=== PATIENT | female | born 1930 | race Caucasian/White ===

== ENCOUNTER 2016-08-24 20:44 | Inpatient (IN) | payer MEDICARE, OTHER ==
[2016-08-24] MEDS ORDERED: SODIUM CHLORIDE 0.9% 500 ML IV ONE (21:53)
[2016-08-24] MEDS: SODIUM CHLORIDE 0.9% 1,000 ML IV SCH (22:03)
[2016-08-24 22:04] LABS: Appearance,Urine Clear (Clear); Basophils % (A) 0 %; Bilirubin,Urine Negative (Negative); CH 31.4; CHCM 34.6; Eosinophils % (A) 0 %; Glucose,Urine (UA) Negative (Negative); HCT 42.1 % (34.0-46.0); HDW 2.33; HGB 14.1 gm/dL (11.4-16.0); Ketones,Urine Negative (Negative); Leukocyte Esterase,Urine Negative (Negative); Luc # (Auto) 0.05; Luc % (Auto) 1; Lymphocytes # (A) 0.6 k/uL (1.0-4.8); Lymphocytes % (A) 6 %; MCH 30.4 pg (25.0-35.0); MCHC 33.4 g/dL (31.0-37.0); MCV 91.1 fL (80.0-100.0); Mean Platelet Volume 8.9; Monocytes # (A) 0.2 k/uL (0-1.0); Monocytes % (A) 2 %; Neutrophils # (A) 8.7 k/uL (1.3-7.7); Neutrophils % (A) 91 %; Nitrite,Urine Negative (Negative); PH, Urine 6.5 (5.0-8.0); Protein,Urine Trace (Negative); RBC 4.62 m/uL (3.80-5.40); RDW 12.7 % (11.5-15.5); Specific Gravity,Urine 1.014 (1.001-1.035); UA Billing (MACRO vs. MICRO) CHEM; Urobilinogen,Urine <2.0 mg/dL (<2.0); WBC 9.6 k/uL (3.8-10.6); WBC (Perox) 9.83
[2016-08-24 22:13] LABS: Anion Gap 15 mmol/L; Blood Urea Nitrogen 14 mg/dL (7-17); Calcium 9.3 mg/dL (8.4-10.2); Carbon Dioxide 25 mmol/L (22-30); Chloride 98 mmol/L (98-107); Glucose 174 mg/dL (74-99); Magnesium 1.7 mg/dL (1.6-2.3); Non-African American GFR(MDRD) 53 (>60 ml/min/1.73 sqM); Potassium 3.7 mmol/L (3.5-5.1); Sodium 138 mmol/L (137-145)
--- NOTE | 2016-08-24 22:18 | ED ---
Fever HPI - General Chief Complaint: Fever Stated Complaint: NIKOLAI Time Seen by Provider: 08/24/16 21:05 Source: patient Mode of arrival: EMS Limitations: no limitations - History of Present Illness Initial Comments: Patient is an 86-year-old female who presents to ED with a chief complaint of shortness of breath. Patient resides at a adult foster home. According to the patient's daughter, the patient has had increased cough and shortness of breath for the past 24 hours. During this time, the patient has also been suffering from a productive cough. Patient has had a fever with T-max of 102.8 Fahrenheit. The patient has a known history of dementia. Initial SpO2 was 90% when the patient was taken to urgent care earlier today. The patient had a chest x-ray performed that demonstrated evidence of a possible right middle lobe pneumonia. As such, the patient was treated with a dose of clindamycin IV. However, given the patient's age and possible sepsis, the patient was transferred to the ED for further examination. Here in the ED, the patient's SpO2 is 96% on 3 L nasal cannula. Patient's blood pressure is noted to be 130/ 84. Heart rate within normal limits. - Related Data Home Medications Medication Instructions Recorded Confirmed Aspirin 81 mg PO DAILY 09/30/14 08/24/16 Benazepril/Hydrochlorothiazide 1 tab PO DAILY 09/30/14 08/24/16 [Benazepril-Hctz 20-12.5 mg Tab] Memantine [Namenda] 10 mg PO BID 09/30/14 08/24/16 Rivastigmine 9.5MG/24Hr Patch 1 each TRANSDERM Q24HR 09/30/14 08/24/16 [Exelon 9.5MG/24Hr Patch] Rosuvastatin Calcium [Crestor] 10 mg PO DAILY 09/30/14 08/24/16 Sertraline [Zoloft] 25 mg PO DAILY 09/30/14 08/24/16 Benazepril/Hydrochlorothiazide 1 each PO DAILY 08/24/16 08/24/16 [Benazepril-Hctz 20-12.5 mg Tab] Previous Rx's Medication Instructions Recorded Folic Acid 1 mg PO DAILY@1200 #30 tablet 10/03/14 Multivitamins, Thera [Multivitamin] 1 each PO DAILY@1200 tab 10/03/14 Thiamine [Vitamin B-1] 100 mg PO DAILY@1200 #30 tablet 10/03/14 Acetaminophen Tab [Tylenol Tab] 500 mg PO Q6H #1 tablet 10/04/14 Allergies Allergy/AdvReac Type Severity Reaction Status Date / Time Penicillins Allergy Unknown Verified 08/24/16 20:52 Review of Systems ROS Statement: Those systems with pertinent positive or pertinent negative responses have been documented in the HPI. ROS Other: All systems not noted in ROS Statement are negative. Limitations: ROS unobtainable due to patients medical condition (Patient has hx of underlying dementia. HPI gathered from patient's daughter) Constitutional: Reports: fever, chills Respiratory: Reports: cough, dyspnea, wheezes. Denies: hemoptysis, stridor Endocrine: Reports: fatigue Gastrointestinal: Denies: abdominal pain, nausea, vomiting, diarrhea Musculoskeletal: Denies: back pain Skin: Denies: rash, lesions Neurological: Denies: headache, weakness Psychiatric: Denies: anxiety, depression Past Medical History Past Medical History: Dementia, Hyperlipidemia, Hypertension History of Any Multi-Drug Resistant Organisms: ESBL Date of last positivie culture/infection: 05/27/16 MDRO Source:: ESBL URINE E.COLI Past Surgical History: Appendectomy Past Psychological History: No Psychological Hx Reported Smoking Status: Never smoker Past Alcohol Use History: None Reported Past Drug Use History: None Reported - Past Family History Mother Family Medical History: Unable to Obtain General Exam Limitations: no limitations General appearance: alert, in no apparent distress Head exam: Present: atraumatic, normocephalic Eye exam: Present: normal appearance, PERRL Pupils: Present: normal accommodation ENT exam: Present: normal exam, mucous membranes dry Neck exam: Present: normal inspection Respiratory exam: Present: wheezes (bilateral). Absent: normal lung sounds bilaterally, respiratory distress, rales, rhonchi, stridor, chest wall tenderness Cardiovascular Exam: Present: regular rate, normal rhythm GI/Abdominal exam: Present: soft. Absent: distended, tenderness, guarding, rebound Extremities exam: Present: normal inspection Back exam: Present: normal inspection, full ROM Neurological exam: Present: alert, other (AAOx1 (per patient's baseline)) Psychiatric exam: Present: normal affect, normal mood Skin exam: Present: warm, dry, intact Course Vital Signs 08/24/16 08/24/16 08/24/16 20:46 22:42 23:43 Temperature 98.2 F 96.9 F L Pulse Rate 64 62 60 Respiratory 16 18 18 Rate Blood Pressure 99/56 129/58 115/57 O2 Sat by Pulse 94 L 93 L 93 L Oximetry Medical Decision Making - Medical Decision Making Patient is an 86-year-old female who presents to ED with a chief complaint shortness of breath. States has been present over the course of the past 24 hours. Patient also noted to have a fever with T-max of 102.8 Fahrenheit. Patient's cough noted to be somewhat productive of yellowish-green sputum. Patient has no history of COPD. Suffers from underlying dementia but is normally functional at baseline. Patient does not wear oxygen at home but is dependent on 3 L nasal cannula here in the ED. Patient denies any chest pain. Patient initially taken to urgent care facility where a chest x-ray was performed and demonstrate a possible right middle lobe pneumonia. Patient was treated with clindamycin at that location. Check CBC, BNP, mag. Check blood cultures. Check lactic acid. Provide patient with IV fluids here in the ED. Check rapid influenza. Provide patient with dose of Rocephin to cover for possibility of community acquired pneumonia. 11:35 PM Patient noted to be Influenza A positive. Will treat patient with does of Tamiflu 75mg. Place patient in Droplet Precautions. 11:51 PM Patient to be admitted to [facility] for further monitoring and management of her Influenza Pneumonia. - Lab Data Result diagrams: 08/24/16 21:55 08/24/16 21:55 Lab Results 08/24/16 08/24/16 08/24/16 Range/Units 21:55 21:55 21:55 WBC 9.6 (3.8-10.6) k/uL RBC 4.62 (3.80-5.40) m/uL Hgb 14.1 (11.4-16.0) gm/dL Hct 42.1 (34.0-46.0) % MCV 91.1 (80.0-100.0) fL MCH 30.4 (25.0-35.0) pg MCHC 33.4 (31.0-37.0) g/dL RDW 12.7 (11.5-15.5) % Plt Count 165 (150-450) k/uL Neutrophils % 91 % Lymphocytes % 6 % Monocytes % 2 % Eosinophils % 0 % Basophils % 0 % Neutrophils # 8.7 H (1.3-7.7) k/uL Lymphocytes # 0.6 L (1.0-4.8) k/uL Monocytes # 0.2 (0-1.0) k/uL Eosinophils # 0.0 (0-0.7) k/uL Basophils # 0.0 (0-0.2) k/uL Sodium 138 (137-145) mmol/L Potassium 3.7 (3.5-5.1) mmol/L Chloride 98 (98-107) mmol/L Carbon Dioxide 25 (22-30) mmol/L Anion Gap 15 mmol/L BUN 14 (7-17) mg/dL Creatinine 1.00 (0.52-1.04) mg/dL Est GFR (MDRD) Af Amer >60 (>60 ml/min/1.73 sqM) Est GFR (MDRD) Non-Af 53 (>60 ml/min/1.73 sqM) Glucose 174 H (74-99) mg/dL Plasma Lactic Acid Donovan 1.7 (0.7-2.0) mmol/L Calcium 9.3 (8.4-10.2) mg/dL Magnesium 1.7 (1.6-2.3) mg/dL Urine Color Urine Appearance (Clear) Urine pH (5.0-8.0) Ur Specific [place] (1.001-1.035) Urine Protein (Negative) Urine Glucose (UA) (Negative) Urine Ketones (Negative) Urine Blood (Negative) Urine Nitrate (Negative) Urine Bilirubin (Negative) Urine Urobilinogen (<2.0) mg/dL Ur Leukocyte Esterase (Negative) Influenza Type A RNA (Not Detectd) Influenza Type B (PCR) (Not Detectd) 08/24/16 08/24/16 Range/Units 21:55 22:35 WBC (3.8-10.6) k/uL RBC (3.80-5.40) m/uL Hgb (11.4-16.0) gm/dL Hct (34.0-46.0) % MCV (80.0-100.0) fL MCH (25.0-35.0) pg MCHC (31.0-37.0) g/dL RDW (11.5-15.5) % Plt Count (150-450) k/uL Neutrophils % % Lymphocytes % % Monocytes % % Eosinophils % % Basophils % % Neutrophils # (1.3-7.7) k/uL Lymphocytes # (1.0-4.8) k/uL Monocytes # (0-1.0) k/uL Eosinophils # (0-0.7) k/uL Basophils # (0-0.2) k/uL Sodium (137-145) mmol/L Potassium (3.5-5.1) mmol/L Chloride (98-107) mmol/L Carbon Dioxide (22-30) mmol/L Anion Gap mmol/L BUN (7-17) mg/dL Creatinine (0.52-1.04) mg/dL Est GFR (MDRD) Af Amer (>60 ml/min/1.73 sqM) Est GFR (MDRD) Non-Af (>60 ml/min/1.73 sqM) Glucose (74-99) mg/dL Plasma Lactic Acid Donovan (0.7-2.0) mmol/L Calcium (8.4-10.2) mg/dL Magnesium (1.6-2.3) mg/dL Urine Color Yellow Urine Appearance Clear (Clear) Urine pH 6.5 (5.0-8.0) Ur Specific [place] 1.014 (1.001-1.035) Urine Protein Trace H (Negative) Urine Glucose (UA) Negative (Negative) Urine Ketones Negative (Negative) Urine Blood Negative (Negative) Urine Nitrate Negative (Negative) Urine Bilirubin Negative (Negative) Urine Urobilinogen <2.0 (<2.0) mg/dL Ur Leukocyte Esterase Negative (Negative) Influenza Type A RNA Detected H (Not Detectd) Influenza Type B (PCR) Not Detected (Not Detectd) - EKG Data -: EKG Interpreted by Me 08/24/16 22:18 EKG demonstrates NSR. There is evidence of a LBBB. There are no concerning ST-T changes. Disposition Clinical Impression: Influenza A Disposition: ADMITTED IP TO THIS [facility] Condition: Stable Time of Disposition: 23:52 Decision to Admit Reason: Admit from EC Decision Date: 08/24/16 Decision Time: 23:53
[2016-08-24] MEDS ORDERED: OSELTAMIVIR 75 MG CAP PO STA (23:32)
[2016-08-24] MEDS ORDERED: NALOXONE 0.4 MG/ML 1 ML VIAL IV PRN (23:46)
[2016-08-24] MEDS ORDERED: ACETAMINOPHEN TAB 325 MG TAB PO PRN (23:46)
[2016-08-25 02:28] VITALS: BMI 29.9
[2016-08-25 07:32] LABS: Basophils % (A) 0 %; CH 31.1; CHCM 33.7; Eosinophils % (A) 0 %; HDW 2.34; HGB 13.2 gm/dL (11.4-16.0); Luc # (Auto) 0.03; Luc % (Auto) 0; Lymphocytes # (A) 0.7 k/uL (1.0-4.8); Lymphocytes % (A) 7 %; MCH 29.9 pg (25.0-35.0); MCHC 32.2 g/dL (31.0-37.0); MCV 92.8 fL (80.0-100.0); Mean Platelet Volume 8.3; Monocytes # (A) 0.2 k/uL (0-1.0); Monocytes % (A) 2 %; Neutrophils # (A) 9.4 k/uL (1.3-7.7); Neutrophils % (A) 91 %; RBC 4.41 m/uL (3.80-5.40); RDW 12.7 % (11.5-15.5); WBC 10.4 k/uL (3.8-10.6); WBC (Perox) 10.74
[2016-08-25 07:55] LABS: ALT 38 U/L (9-52); AST 29 U/L (14-36); Alkaline Phosphatase 77 U/L (38-126); Anion Gap 16 mmol/L; Blood Urea Nitrogen 16 mg/dL (7-17); Calcium 8.8 mg/dL (8.4-10.2); Carbon Dioxide 23 mmol/L (22-30); Chloride 102 mmol/L (98-107); Glucose 169 mg/dL (74-99); Magnesium 1.8 mg/dL (1.6-2.3); Non-African American GFR(MDRD) >60 (>60 ml/min/1.73 sqM); Potassium 3.9 mmol/L (3.5-5.1); Sodium 141 mmol/L (137-145); Total Bilirubin 0.3 mg/dL (0.2-1.3); Total Protein 5.8 g/dL (6.3-8.2)
[2016-08-25] MEDS: OSELTAMIVIR 75 MG CAP PO SCH ×2 (08:49→21:58)
[2016-08-25] MEDS: SERTRALINE 25 MG TAB PO SCH (17:26)
[2016-08-25] MEDS: RIVASTIGMINE 9.5MG/24HR PATCH TRANSDERM SCH (17:26)
[2016-08-25] MEDS: ASPIRIN 81 MG CHEW PO SCH (17:26)
[2016-08-25] MEDS: ENOXAPARIN 40 MG/0.4 ML SYRINGE SQ SCH (17:27)
[2016-08-25] MEDS: SODIUM CHLORIDE 0.9% 1,000 ML IV SCH ×2 (17:27→19:50)
--- NOTE | 2016-08-25 19:00 | HP ---
DATE OF ADMISSION: 08/24/2016 PRESENTING COMPLAINT: Short of breath, cough. HISTORY OF PRESENTING COMPLAINT: This is an 86-year-old patient of Dr. Barajas, a resident of [facility], not a very good historian. Chronic stable medical conditions include dementia, hypertension, hyperlipidemia, depression, sent in for short of breath, cough, patient congested. Patient herself is not the best of historian, but can answer simple questions. Did tolerate some breakfast. Review of systems cannot really be obtained as patient is a poor historian. PAST MEDICAL HISTORY: Dementia, hyperlipidemia, hypertension, ESBL. PAST SURGICAL HISTORY: Appendectomy. SOCIAL HISTORY: No smoking or alcohol, resident of [facility]. FAMILY HISTORY: Patient could not tell. HOME MEDICATIONS: 1. Preservation Areds 2 softgel 1 capsule p.o. b.i.d. 2. Ubiquinol 100 mg p.o. daily. 3. Thiamine 100 mg p.o. daily at noon. 4. Zoloft 25 mg p.o. daily. 5. Crestor 10 mg p.o. q.h.s. 6. Exelon 9.5 one patch q.24 hours. 7. Naproxen 220 mg p.o. b.i.d. p.r.n. 8. Namenda 10 mg p.o. b.i.d. 9. Folic acid 1 mg p.o. daily. 10. Vitamin D3 two thousand units p.o. daily. 11. Benazepril hydrochlorothiazide 20/12.5 one tablet p.o. daily. 12. Aspirin 81 mg p.o. daily. 13. Vitamin C 1000 mg p.o. q.h.s. 14. Tylenol tablet 500 mg q.6. Allergy to PENICILLIN. On examination, vital signs on presentation: Temperature 98.2, pulse 54, respirations 16, blood pressure 99/56, pulse ox 94% on 2 L, repeat blood pressure 120/58. GENERAL APPEARANCE: Average build, sitting up in bed, not in distress. EYES: Pupils equal. Conjunctivae normal. HEENT: External appearance of nose and ears normal. NECK: JVD not raised. Mass not palpable. RESPIRATORY: Minimal wheezing. CARDIOVASCULAR: First and second sounds normal. No edema. ABDOMEN: Soft, nontender. Liver and spleen not palpable. LYMPHATIC: No lymph node palpable in neck or axillae. PSYCHIATRY: Patient answering some simple questions. NEUROLOGICAL: Pupils equal. No facial asymmetry. Moving all 4 limbs. INVESTIGATIONS: White count 9.6, hemoglobin 14.1, potassium 3.7. Influenza type A RNA detected. EKG left bundle branch block. ASSESSMENT: 1. Influenza A acute respiratory tract infection with possible bronchitis. 2. 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 3. Hyperlipidemia. 4. Hypertension. 5. Depression, not otherwise specified. 6. Right bundle branch block, asymptomatic. PLAN: Home medications are resumed. Patient is put on Tamiflu, some IV fluids.
[2016-08-25] MEDS ORDERED: ATORVASTATIN 20 MG TAB PO SCH (21:00)
[2016-08-25] MEDS: MEMANTINE 10 MG TAB PO SCH (21:58)
[2016-08-26] MEDS: SODIUM CHLORIDE 0.9% 1,000 ML IV SCH ×2 (03:49→18:22)
[2016-08-26] MEDS: RIVASTIGMINE 9.5MG/24HR PATCH TRANSDERM SCH (08:57)
[2016-08-26] MEDS: ENOXAPARIN 40 MG/0.4 ML SYRINGE SQ SCH (08:57)
[2016-08-26] MEDS: ASPIRIN 81 MG CHEW PO SCH (08:57)
[2016-08-26] MEDS: SERTRALINE 25 MG TAB PO SCH (08:57)
[2016-08-26] MEDS: MEMANTINE 10 MG TAB PO SCH (08:59)
[2016-08-26] MEDS: OSELTAMIVIR 75 MG CAP PO SCH (09:00)
[2016-08-26] MEDS ORDERED: HYDROCHLOROTHIAZIDE 12.5 MG CAP PO SCH (09:00)
[2016-08-26] MEDS ORDERED: LISINOPRIL 20 MG TAB PO SCH (09:00)
[2016-08-26 09:37] VITALS: RESP 15
[2016-08-26 15:34] VITALS: BP 146/77; PULSE 78; TEMP 97.6
[2016-08-27] MEDS ORDERED: OSELTAMIVIR 75 MG CAP PO SCH (09:00)
--- NOTE | 2016-08-27 22:10 | DS ---
DATE OF ADMISSION: 08/24/2016 DATE OF DISCHARGE: 08/26/2016 FINAL DIAGNOSES: 1. Acute influenza A infection of the upper respiratory tract with possible bronchitis. 2. Alzheimer dementia, late onset, with no evidence of psychosis. 3. Hyperlipidemia, chronic. 4. Hypertension, chronic. 5. Depression, not otherwise specified. 6. Rectal blood, asymptomatic. HOSPITAL COURSE: This pleasant lady with underlying dementia presented with influenza A, cough, congestion. By the time of discharge, patient has minimal cough, not coughing up anything at all, tolerating a diet, comfortable. On exam, lungs are clear. CARDIOVASCULAR: First and second seconds normal. Patient able to answer simple questions. DISCHARGE MEDICATIONS: 1. Aspirin 81 mg a day. 2. Benazepril/hydrochlorothiazide 25/12.5, 1 tablet p.o. daily. 3. Namenda 10 mg p.o. b.i.d. 4. Exelon 9.5, 1 patch q.24. 5. Crestor 10 mg p.o. q.h.s. 6. Zoloft 25 mg p.o. daily. 7. Folic acid 1 mg at noon. 8. Thiamine 100 mg p.o. daily. 9. Emergen-C 1000 p.o. q.h.s. 10. Vitamin D3, 2000 units p.o. daily. 11. Aleve 220 mg b.i.d. p.r.n. 12. ( ) 100 mg p.o. daily. 13. PreserVision AREDS 1 capsule p.o. b.i.d. 14. Tamiflu 75 mg p.o. b.i.d. 6 capsules. Follow up with Dr. Barajas in 3 days.
== END 2016-08-26 19:59 | disposition home or self-care (01) | DRG 153 ==
LOC: EC 20:44 → 3SUR 23:46
PROVIDERS: ADMIT Hospitalist; ATTEND Hospitalist
DX: J11.1 Influenza due to unidentified influenza virus with other respiratory manifestations (principal); I45.2 Bifascicular block; G30.1 Alzheimer's disease with late onset; I10 Essential (primary) hypertension; F02.80 Dementia in other diseases classified elsewhere, unspecified severity, without behavioral disturbance, psychotic disturbance, mood disturbance, and anxiety; K62.5 Hemorrhage of anus and rectum; F32.9 Major depressive disorder, single episode, unspecified; E78.5 Hyperlipidemia, unspecified; Z88.0 Allergy status to penicillin; Z90.49 Acquired absence of other specified parts of digestive tract; Z79.82 Long term (current) use of aspirin; Z79.1 Long term (current) use of non-steroidal anti-inflammatories (NSAID); Z79.899 Other long term (current) drug therapy; Z16.24 Resistance to multiple antibiotics
CPT/HCPCS: 36415; 80048; 80053; 81003; 83605; 83735; 84100; 85025; 87040; 87502; 93005; 96361; 96374; 99285

== ENCOUNTER → 2016-12-12 | Outpatient (CLI) | payer MEDICARE | END | disposition home or self-care (01) | LOC: LABWHC1 12:47 | PROVIDERS: ATTEND Family Medicine | DX: N39.0 Urinary tract infection, site not specified (principal) | CPT/HCPCS: 87086 ==

== ENCOUNTER 2017-08-10 19:17 | Emergency (ER) | payer MEDICARE ==
[2017-08-10 19:26] VITALS: TEMP 97.3
[2017-08-10] MEDS ORDERED: SODIUM CHLORIDE 0.9% 1,000 ML IV STA (19:59)
--- NOTE | 2017-08-10 20:03 | ED ---
Fall HPI <Lala Gr - Last Filed: 08/10/17 21:43> - General Source: patient, family, RN notes reviewed Mode of arrival: ambulatory - History of Present Illness MD Complaint: fall <AbelLucas - Last Filed: 08/10/17 21:53> - General Chief Complaint: Fall Stated Complaint: Syncope Time Seen by Provider: 08/10/17 19:35 - History of Present Illness Initial Comments: This 87-year-old female who apparently was walking back from dinner when her eyes fluttered and she fell to the ground. She did strike the right side of her forehead. There is a questionable loss of consciousness. She denies any nausea vomiting she has had pain to her head in the right side the [place] neck pain. No chest abdomen or extremity pain. No prior histories of syncope. No palpitations reported. No recent fevers chills nausea vomiting sweats. (Lucas Roman) - Related Data Home Medications Medication Instructions Recorded Confirmed Aspirin 81 mg PO HS 09/30/14 08/10/17 Benazepril/Hydrochlorothiazide 1 tab PO DAILY 09/30/14 08/10/17 [Benazepril-Hctz 20-12.5 mg Tab] Memantine [Namenda] 10 mg PO BID 09/30/14 08/10/17 Rivastigmine 9.5MG/24Hr Patch 1 patch TRANSDERM Q24HR 09/30/14 08/10/17 [Exelon 9.5MG/24Hr Patch] Rosuvastatin Calcium [Crestor] 10 mg PO HS 09/30/14 08/10/17 Sertraline [Zoloft] 25 mg PO DAILY 09/30/14 08/10/17 Cholecalciferol [Vitamin D3] 2,000 unit PO DAILY 08/25/16 08/10/17 Ubiquinol 100 mg PO DAILY 08/25/16 08/10/17 Vit C/E/Zn/Coppr/Lutein/Zeaxan 1 cap PO BID 08/25/16 08/10/17 [Preservision Areds 2 Softgel] Acetaminophen Tab [Tylenol] 500 mg PO Q6H PRN 08/10/17 08/10/17 Cranberry/Vitamin C 4,200 mg PO DAILY 08/10/17 08/10/17 Emergen Z 1 packet PO HS 08/10/17 08/10/17 Folic Acid 1 mg PO DAILY 08/10/17 08/10/17 Methenamine Hippurate 1 gm PO BID 08/10/17 08/10/17 Thiamine [Vitamin B-1] 100 mg PO DAILY 08/10/17 08/10/17 guaiFENesin SYRUP 100MG/5ML 200 mg PO TID PRN 08/10/17 08/10/17 [Robitussin] Allergies Allergy/AdvReac Type Severity Reaction Status Date / Time Penicillins Allergy Unknown Verified 08/10/17 20:00 Review of Systems ROS Other: All systems not noted in ROS Statement are negative. <Lala Gr - Last Filed: 08/10/17 21:43> ROS Other: All systems not noted in ROS Statement are negative. <Lucas Roman - Last Filed: 08/10/17 21:53> ROS Statement: Those systems with pertinent positive or pertinent negative responses have been documented in the HPI. Past Medical History Past Medical History: Dementia, Hyperlipidemia, Hypertension History of Any Multi-Drug Resistant Organisms: ESBL Date of last positivie culture/infection: 05/27/16 MDRO Source:: ESBL URINE E.COLI Past Surgical History: Appendectomy Past Anesthesia/Blood Transfusion Reactions: No Reported Reaction Past Psychological History: No Psychological Hx Reported Smoking Status: Never smoker Past Alcohol Use History: None Reported Past Drug Use History: None Reported - Past Family History Mother Family Medical History: Unable to Obtain <Lucas Roman - Last Filed: 08/10/17 21:53> General Exam <Lala Gr - Last Filed: 08/10/17 21:43> Limitations: no limitations General appearance: alert Head exam: Present: normocephalic, other (2.5 cm laceration right lateral forehead no step-off or crepitation no active bleeding currently.) Eye exam: Present: normal appearance, PERRL, EOMI. Absent: scleral icterus, conjunctival injection, periorbital swelling ENT exam: Present: normal exam, mucous membranes moist Neck exam: Present: normal inspection. Absent: tenderness, meningismus, lymphadenopathy Respiratory exam: Present: normal lung sounds bilaterally. Absent: respiratory distress, wheezes, rales, rhonchi, stridor Cardiovascular Exam: Present: normal rhythm, bradycardia GI/Abdominal exam: Present: soft, normal bowel sounds. Absent: distended, tenderness, guarding, rebound, rigid Extremities exam: Present: normal inspection, full ROM, normal capillary refill. Absent: tenderness, pedal edema, joint swelling, calf tenderness Back exam: Present: normal inspection Neurological exam: Present: alert, oriented X3, CN II-XII intact. Absent: motor sensory deficit Psychiatric exam: Present: normal affect, normal mood Skin exam: Present: warm, dry, normal color. Absent: intact <Lucas Roman - Last Filed: 08/10/17 21:53> - General Exam Comments Initial Comments: Is a well-developed well-nourished awake alert oriented 3 female she has a [place] Coma Scale of 15 (Lucas Roman) Course <Lala Gr - Last Filed: 08/10/17 21:43> <Lucas Roman - Last Filed: 08/10/17 21:53> Vital Signs 08/10/17 08/10/17 08/10/17 19:18 21:20 21:35 Temperature 97.3 F L Pulse Rate 55 L 58 L 54 L Respiratory 16 18 18 Rate Blood Pressure 177/73 151/70 102/70 O2 Sat by Pulse 98 98 100 Oximetry - Reevaluation(s) Reevaluation #1: 08/10/17 21:49 Reevaluation patient return from CAT scan shows no acute changes. The laceration was repaired by my physician phlebotomy lab assistant Lala. (Lucas Roman) Reevaluation #2: 08/10/17 21:52 Reevaluation of the wound after repair reveals good approximation of the wound edges. (Lucas Roman) Procedures <Lala Gr - Last Filed: 08/10/17 21:43> <Lucas Roman - Last Filed: 08/10/17 21:53> - Procedures Initial comment: The skin was anesthetized with 1% lidocaine. The laceration was then cleansed with Betadine and irrigated with normal saline. The wound was inspected, and there was no evidence of injury to deep structures. No foreign body was noted in the wound. A total of 4 skin sutures were placed utilizing 6-0 nylon to a 2.5 cm laceration to the right forehead (Lala Gr) Medical Decision Making - Lab Data Result diagrams: 08/10/17 20:26 08/10/17 20:26 <Lala rG - Last Filed: 08/10/17 21:43> - Lab Data Result diagrams: 08/10/17 20:26 08/10/17 20:26 - EKG Data -: EKG Interpreted by Me EKG shows normal: sinus rhythm (Sinus bradycardia rate of 55. We'll 172 QRS duration 142 daily since QTC of 478/457 evidence of left exodeviation left bundle-branch block.) - Radiology Data Radiology results: report reviewed (I did review the imaging and reports it did discuss the case with Dr. Land from radiology patient does demonstrate evidence a right frontal subarachnoid bleed with a subdural component no mass effect.), image reviewed <Lucas Roman - Last Filed: 08/10/17 21:53> - Medical Decision Making I did discuss the findings with the patient and with her caregiver. Patient does demonstrate a subarachnoid and evidence of a small subdural bleed. Patient will be transferred to [facility]. I did discuss case with Dr. Coronado who was accepted patient is an ER to ER transfer. (Lucas Roman) - Lab Data Lab Results 08/10/17 08/10/17 08/10/17 Range/Units 20:26 20:26 20:26 WBC 11.1 H (3.8-10.6) k/uL RBC 4.60 (3.80-5.40) m/uL Hgb 13.8 (11.4-16.0) gm/dL Hct 43.2 (34.0-46.0) % MCV 93.9 (80.0-100.0) fL MCH 29.9 (25.0-35.0) pg MCHC 31.9 (31.0-37.0) g/dL RDW 14.3 (11.5-15.5) % Plt Count 207 (150-450) k/uL Neutrophils % 73 % Lymphocytes % 20 % Monocytes % 4 % Eosinophils % 1 % Basophils % 1 % Neutrophils # 8.1 H (1.3-7.7) k/uL Lymphocytes # 2.2 (1.0-4.8) k/uL Monocytes # 0.5 (0-1.0) k/uL Eosinophils # 0.1 (0-0.7) k/uL Basophils # 0.1 (0-0.2) k/uL PT (9.0-12.0) sec INR (<1.2) APTT (22.0-30.0) sec Sodium 139 (137-145) mmol/L Potassium 4.8 (3.5-5.1) mmol/L Chloride 103 (98-107) mmol/L Carbon Dioxide 24 (22-30) mmol/L Anion Gap 12 mmol/L BUN 11 (7-17) mg/dL Creatinine 0.70 (0.52-1.04) mg/dL Est GFR (MDRD) Af Amer >60 (>60 ml/min/1.73 sqM) Est GFR (MDRD) Non-Af >60 (>60 ml/min/1.73 sqM) Glucose 108 H (74-99) mg/dL Calcium 10.0 (8.4-10.2) mg/dL Magnesium 1.8 (1.6-2.3) mg/dL Total Bilirubin 1.3 (0.2-1.3) mg/dL AST 39 H (14-36) U/L ALT 13 (9-52) U/L Alkaline Phosphatase 83 (38-126) U/L Total Creatine Kinase 55 (30-135) U/L CK-MB (CK-2) 2.1 (0.0-2.4) ng/mL CK-MB (CK-2) Rel Index 3.8 Troponin I 0.019 (0.000-0.034) ng/mL Total Protein 6.8 (6.3-8.2) g/dL Albumin 4.0 (3.5-5.0) g/dL Urine Color Urine Appearance (Clear) Urine pH (5.0-8.0) Ur Specific [place] (1.001-1.035) Urine Protein (Negative) Urine Glucose (UA) (Negative) Urine Ketones (Negative) Urine Blood (Negative) Urine Nitrite (Negative) Urine Bilirubin (Negative) Urine Urobilinogen (<2.0) mg/dL Ur Leukocyte Esterase (Negative) Urine RBC (0-5) /hpf Urine WBC (0-5) /hpf Ur Squamous Epith Cells (0-4) /hpf 08/10/17 08/10/17 Range/Units 20:26 21:31 WBC (3.8-10.6) k/uL RBC (3.80-5.40) m/uL Hgb (11.4-16.0) gm/dL Hct (34.0-46.0) % MCV (80.0-100.0) fL MCH (25.0-35.0) pg MCHC (31.0-37.0) g/dL RDW (11.5-15.5) % Plt Count (150-450) k/uL Neutrophils % % Lymphocytes % % Monocytes % % Eosinophils % % Basophils % % Neutrophils # (1.3-7.7) k/uL Lymphocytes # (1.0-4.8) k/uL Monocytes # (0-1.0) k/uL Eosinophils # (0-0.7) k/uL Basophils # (0-0.2) k/uL PT 11.0 (9.0-12.0) sec INR 1.1 (<1.2) APTT 24.9 (22.0-30.0) sec Sodium (137-145) mmol/L Potassium (3.5-5.1) mmol/L Chloride (98-107) mmol/L Carbon Dioxide (22-30) mmol/L Anion Gap mmol/L BUN (7-17) mg/dL Creatinine (0.52-1.04) mg/dL Est GFR (MDRD) Af Amer (>60 ml/min/1.73 sqM) Est GFR (MDRD) Non-Af (>60 ml/min/1.73 sqM) Glucose (74-99) mg/dL Calcium (8.4-10.2) mg/dL Magnesium (1.6-2.3) mg/dL Total Bilirubin (0.2-1.3) mg/dL AST (14-36) U/L ALT (9-52) U/L Alkaline Phosphatase (38-126) U/L Total Creatine Kinase (30-135) U/L CK-MB (CK-2) (0.0-2.4) ng/mL CK-MB (CK-2) Rel Index Troponin I (0.000-0.034) ng/mL Total Protein (6.3-8.2) g/dL Albumin (3.5-5.0) g/dL Urine Color Light Yellow Urine Appearance Clear (Clear) Urine pH 6.5 (5.0-8.0) Ur Specific [place] 1.004 (1.001-1.035) Urine Protein Negative (Negative) Urine Glucose (UA) Negative (Negative) Urine Ketones Negative (Negative) Urine Blood Negative (Negative) Urine Nitrite Negative (Negative) Urine Bilirubin Negative (Negative) Urine Urobilinogen <2.0 (<2.0) mg/dL Ur Leukocyte Esterase Moderate H (Negative) Urine RBC 1 (0-5) /hpf Urine WBC 6 H (0-5) /hpf Ur Squamous Epith Cells 1 (0-4) /hpf Critical Care Time <Lala Gr - Last Filed: 08/10/17 21:43> Critical Care Time: Yes <Lucas Roman - Last Filed: 08/10/17 21:53> Critical Care Time: 31 minutes of critical care time which includes initial presentation with history physical labs x-rays several reevaluation of the patient response to therapy discussed with patient and caregiver. Discussion with the receiving facility documentation of the above. (Lucas Roman) Disposition <Lala Gr - Last Filed: 08/10/17 21:43> - Out of Hospital Transfer - Req. Specs Out of Hospital Transfer - Requested Specifics: Other Emergency Center <Lucas Roman - Last Filed: 08/10/17 21:53> Clinical Impression: Subarachnoid hemorrhage, Frontal lobe contusion, Forehead laceration, Fall Disposition: OTHER INSTITUTION NOT DEFINED Condition: Stable Referrals: Navid Barajas DO [Primary Care Provider] - 1-2 days
[2017-08-10 20:44] LABS: Basophils # (A) 0.1 k/uL (0-0.2); Basophils % (A) 1 %; Eosinophils # (A) 0.1 k/uL (0-0.7); Eosinophils % (A) 1 %; HCT 43.2 % (34.0-46.0); HGB 13.8 gm/dL (11.4-16.0); Lymphocytes # (A) 2.2 k/uL (1.0-4.8); Lymphocytes % (A) 20 %; MCH 29.9 pg (25.0-35.0); MCHC 31.9 g/dL (31.0-37.0); MCV 93.9 fL (80.0-100.0); Mean Platelet Volume 8.3; Monocytes # (A) 0.5 k/uL (0-1.0); Monocytes % (A) 4 %; Neutrophils # (A) 8.1 k/uL (1.3-7.7); Neutrophils % (A) 73 %; Platelet Count 207 k/uL (150-450); RDW 14.3 % (11.5-15.5); WBC 11.1 k/uL (3.8-10.6)
[2017-08-10 21:02] LABS: ALT 13 U/L (9-52); AST 39 U/L (14-36); Alkaline Phosphatase 83 U/L (38-126); Anion Gap 12 mmol/L; Blood Urea Nitrogen 11 mg/dL (7-17); Carbon Dioxide 24 mmol/L (22-30); Chloride 103 mmol/L (98-107); Glucose 108 mg/dL (74-99); Magnesium 1.8 mg/dL (1.6-2.3); Sodium 139 mmol/L (137-145); Total Bilirubin 1.3 mg/dL (0.2-1.3); Total Protein 6.8 g/dL (6.3-8.2)
[2017-08-10 21:03] LABS: Potassium 4.8 mmol/L (3.5-5.1)
[2017-08-10 21:04] LABS: Partial Thromboplastin Time 24.9 sec (22.0-30.0)
[2017-08-10 21:05] LABS: INR 1.1 (<1.2)
--- NOTE | 2017-08-10 21:17 | CT ---
EXAMINATION TYPE: CT brain cspine wo con DATE OF EXAM: 08/10/2017 COMPARISON: CT brain and cervical spine September 30, 2014 HISTORY: Patient poor historian. Syncopal fall. CT DLP: 923.6 mGycm. Automated Exposure Control for Dose Reduction was Utilized. TECHNIQUE: CT scan of the head and cervical spine are performed without contrast. FINDINGS: There is new small extra-axial hyperdensity right frontal region measuring up to 3 mm in thickness. Additional acute hyperdense area fills sulcus sagittal image 15. This is confirmed on stephen nal and sagittal images. No midline shift is seen. There is ventricular and sulcal prominence consist ent with diffuse cerebral atrophy. There is low attenuation in the periventricular white matter. The visualized calvarium is intact. The visualized paranasal sinuses show 7 mm mucous retention cyst or polyp in posterior left ethmoid sinus. Vascular calcification distal internal carotid arteries is pre sent. Sinuses and orbits are incompletely imaged. Cervical spine is visualized in its entirety from C1 through upper thoracic levels and demonstrates s traightening alignment without evidence of acute fracture or dislocation. Prevertebral soft tissue a ppears within normal limits. The C1-C2 articulation is within normal limits on the coronal images. Osseous structures are demineralized. Vertebral body heights are maintained. There is moderate to adv anced multilevel disc space narrowing. There is prominent spurring anteriorly C7-T1 level redemonstra carlos. No large posterior disc herniations are seen on sagittal images. Review of axial images shows de gradation related to patient motion. There are multilevel uncovertebral facet degenerative changes bi laterally contributing to multilevel neural foraminal narrowing most prominent at C3-C4 through C6-C7 levels. Thyroid gland is normal in size. There is moderate biapical pleural/parenchymal scarring. IMPRESSION: 1. Motion artifact degradation is present. There is no acute fracture or dislocation evident in the c ervical spine. Demineralization and multilevel moderate to advanced degenerative changes are present. 2. There is new small amount of right frontal extra-axial hemorrhage with definite subarachnoid compo nent and possible subdural component. No midline shift is seen. There is background moderate diffuse cerebral atrophy and moderate to advanced chronic small vessel ischemic change redemonstrated. Critical results of acute intraparenchymal hemorrhage communicated to ordering ER physician via telep helen at time of dictation.
--- NOTE | 2017-08-10 21:18 | XR ---
EXAMINATION TYPE: XR chest 2V DATE OF EXAM: 08/10/2017 COMPARISON: Chest x-ray October 01, 2014 HISTORY: Syncope and weakness. TECHNIQUE: Frontal and lateral views of the chest are obtained. FINDINGS: There is chronic parenchymal change without suspicious focal air space opacity, pleural ef fusion, or pneumothorax seen. The cardiac silhouette size is upper limits of normal with atheroscler otic aorta. The osseous structures are demineralized. Underlying scoliosis is present. IMPRESSION: No acute pulmonary process. No significant change from prior.
[2017-08-10 21:21] LABS: Creatine Kinase MB 2.1 ng/mL (0.0-2.4); Troponin I 0.019 ng/mL (0.000-0.034)
[2017-08-10 21:39] VITALS: RESP 18
[2017-08-10 21:41] LABS: Appearance,Urine Clear (Clear); Bilirubin,Urine Negative (Negative); Blood,Urine Negative (Negative); Color,Urine Light Yellow; Glucose,Urine (UA) Negative (Negative); Ketones,Urine Negative (Negative); Leukocyte Esterase,Urine Moderate (Negative); Nitrite,Urine Negative (Negative); PH, Urine 6.5 (5.0-8.0); Protein,Urine Negative (Negative); RBC,Urine 1 /hpf (0-5); Specific Gravity,Urine 1.004 (1.001-1.035); Squamous Epithelial Cell,Urine 1 /hpf (0-4); Urobilinogen,Urine <2.0 mg/dL (<2.0); WBC,Urine 6 /hpf (0-5)
[2017-08-10 22:08] VITALS: BP 139/68; PULSE 55
== END 2017-08-10 22:48 | disposition other institution (70) ==
LOC: EC 19:17
DX: S06.6X0A Traumatic subarachnoid hemorrhage without loss of consciousness, initial encounter (principal); S01.81XA Laceration without foreign body of other part of head, initial encounter; R40.2412 Glasgow coma scale score 13-15, at arrival to emergency department; F03.90 Unspecified dementia, unspecified severity, without behavioral disturbance, psychotic disturbance, mood disturbance, and anxiety; E78.5 Hyperlipidemia, unspecified; I10 Essential (primary) hypertension; Z79.82 Long term (current) use of aspirin; Z79.899 Other long term (current) drug therapy; Z88.0 Allergy status to penicillin; W01.10XA Fall on same level from slipping, tripping and stumbling with subsequent striking against unspecified object, initial encounter; Y93.01 Activity, walking, marching and hiking
CPT/HCPCS: 12011; 36415; 70450; 71046; 72125; 80053; 81001; 82550; 82553; 83735; 84484; 85025; 85610; 85730; 93005; 96360; 99285

== ENCOUNTER 2018-01-18 17:52 | Emergency (ER) | payer MEDICARE ==
[2018-01-18 17:58] VITALS: TEMP 99.9
[2018-01-18] MEDS ORDERED: SODIUM CHLORIDE 0.9% 1,000 ML IV STA (18:01)
[2018-01-18] MEDS ORDERED: ACETAMINOPHEN TAB 325 MG TAB PO STA (18:11)
--- NOTE | 2018-01-18 18:14 | ED ---
Fever HPI - General Chief Complaint: Fever Stated Complaint: FEVER, COUGH, POSS UTI Time Seen by Provider: 01/18/18 17:59 Source: patient, family Mode of arrival: wheelchair Limitations: altered mental status - History of Present Illness Initial Comments: This is an 87-year-old female presents emergency Department with daughter from [facility] with complaints of fever. Patient reportedly developed a fever in the last 24 hours daughter is concerned about possible urinary tract infection. They have had 4 recent residence in the assisted-living with URI and UTI. Patient has had a cough which is minimally productive. She's had no recent Tylenol or Motrin even. Patient reports no nasal congestion or ear pain no headache no dizziness. Denies any chest pain or shortness of breath. Mostly history is given by daughter as patient has a history of dementia - Related Data Home Medications Medication Instructions Recorded Confirmed Aspirin 81 mg PO HS 09/30/14 01/18/18 Memantine [Namenda] 10 mg PO BID 09/30/14 01/18/18 Rivastigmine 9.5MG/24Hr Patch 1 patch TRANSDERM Q24HR 09/30/14 01/18/18 [Exelon 9.5MG/24Hr Patch] Sertraline [Zoloft] 25 mg PO DAILY 09/30/14 01/18/18 Cholecalciferol [Vitamin D3] 2,000 unit PO DAILY 08/25/16 01/18/18 Ubiquinol 100 mg PO DAILY 08/25/16 01/18/18 Vit C/E/Zn/Coppr/Lutein/Zeaxan 1 cap PO BID 08/25/16 01/18/18 [Preservision Areds 2 Softgel] Acetaminophen Tab [Tylenol] 1,000 mg PO Q6H PRN 08/10/17 01/18/18 Emergen Z 1 packet PO HS 08/10/17 01/18/18 Folic Acid 1 mg PO DAILY 08/10/17 01/18/18 Methenamine Hippurate 1 gm PO BID 08/10/17 01/18/18 Thiamine [Vitamin B-1] 100 mg PO DAILY 08/10/17 01/18/18 Magnesium Hydroxide [Milk of 2,400 mg PO DAILY PRN 01/18/18 01/18/18 Magnesia Concentrate] Previous Rx's Medication Instructions Recorded Azithromycin [Zithromax] 0 ml PO DIRECTED #38 ml 01/18/18 Allergies Allergy/AdvReac Type Severity Reaction Status Date / Time Penicillins Allergy Unknown Verified 01/18/18 18:20 Review of Systems ROS Statement: Those systems with pertinent positive or pertinent negative responses have been documented in the HPI. ROS Other: All systems not noted in ROS Statement are negative. Past Medical History Past Medical History: Dementia, Hyperlipidemia, Hypertension History of Any Multi-Drug Resistant Organisms: ESBL Date of last positivie culture/infection: 05/27/16 MDRO Source:: ESBL URINE E.COLI Past Surgical History: Appendectomy Past Anesthesia/Blood Transfusion Reactions: No Reported Reaction Past Psychological History: No Psychological Hx Reported Smoking Status: Never smoker Past Alcohol Use History: None Reported Past Drug Use History: None Reported - Past Family History Mother Family Medical History: Unable to Obtain General Exam Limitations: altered mental status (Dementia) General appearance: alert, in no apparent distress Head exam: Present: atraumatic, normocephalic, normal inspection Eye exam: Present: normal appearance, PERRL, EOMI. Absent: scleral icterus, conjunctival injection, periorbital swelling ENT exam: Present: normal exam, normal oropharynx, mucous membranes moist Neck exam: Present: normal inspection. Absent: tenderness, meningismus, lymphadenopathy Respiratory exam: Present: normal lung sounds bilaterally. Absent: respiratory distress, wheezes, rales, rhonchi, stridor Cardiovascular Exam: Present: regular rate, normal rhythm, normal heart sounds. Absent: systolic murmur, diastolic murmur, rubs, gallop, clicks GI/Abdominal exam: Present: soft, normal bowel sounds. Absent: distended, tenderness, guarding, rebound, rigid Neurological exam: Present: alert. Absent: oriented X3 Skin exam: Present: warm, dry, intact, normal color. Absent: rash Course Vital Signs 01/18/18 01/18/18 17:55 19:10 Temperature 99.9 F H Pulse Rate 71 62 Respiratory 20 16 Rate Blood Pressure 132/67 146/66 O2 Sat by Pulse 94 L 97 Oximetry Medical Decision Making - Medical Decision Making This is an 87-year-old female presented for cough congestion fever possible UTI. Patient's found to have no urinary tract infection has normal lab work chest x-ray reviewed no acute cardio pulmonary process. Patient was treated with azithromycin for acute bronchitis has been multiple residents with upper history infections. Return parameters were discussed. Family agrees to plan at this time. - Lab Data Result diagrams: 01/18/18 18:25 01/18/18 18:25 Lab Results 01/18/18 01/18/18 01/18/18 Range/Units 18:25 18:25 18:25 WBC 8.5 (3.8-10.6) k/uL RBC 4.25 (3.80-5.40) m/uL Hgb 13.3 (11.4-16.0) gm/dL Hct 38.9 (34.0-46.0) % MCV 91.5 (80.0-100.0) fL MCH 31.3 (25.0-35.0) pg MCHC 34.2 (31.0-37.0) g/dL RDW 12.9 (11.5-15.5) % Plt Count 156 (150-450) k/uL Neutrophils % 78 % Lymphocytes % 13 % Monocytes % 6 % Eosinophils % 0 % Basophils % 0 % Neutrophils # 6.6 (1.3-7.7) k/uL Lymphocytes # 1.1 (1.0-4.8) k/uL Monocytes # 0.5 (0-1.0) k/uL Eosinophils # 0.0 (0-0.7) k/uL Basophils # 0.0 (0-0.2) k/uL Sodium 134 L (137-145) mmol/L Potassium 4.0 (3.5-5.1) mmol/L Chloride 98 (98-107) mmol/L Carbon Dioxide 26 (22-30) mmol/L Anion Gap 10 mmol/L BUN 20 H (7-17) mg/dL Creatinine 0.60 (0.52-1.04) mg/dL Est GFR (CKD-EPI)AfAm >90 (>60 ml/min/1.73 sqM) Est GFR (CKD-EPI)NonAf 82 (>60 ml/min/1.73 sqM) Glucose 105 H (74-99) mg/dL Plasma Lactic Acid Donovan 1.2 (0.7-2.0) mmol/L Calcium 8.6 (8.4-10.2) mg/dL Total Bilirubin 0.2 (0.2-1.3) mg/dL AST 24 (14-36) U/L ALT 31 (9-52) U/L Alkaline Phosphatase 78 (38-126) U/L Total Protein 5.9 L (6.3-8.2) g/dL Albumin 3.6 (3.5-5.0) g/dL Urine Color Urine Appearance (Clear) Urine pH (5.0-8.0) Ur Specific [place] (1.001-1.035) Urine Protein (Negative) Urine Glucose (UA) (Negative) Urine Ketones (Negative) Urine Blood (Negative) Urine Nitrite (Negative) Urine Bilirubin (Negative) Urine Urobilinogen (<2.0) mg/dL Ur Leukocyte Esterase (Negative) 01/18/18 Range/Units 18:25 WBC (3.8-10.6) k/uL RBC (3.80-5.40) m/uL Hgb (11.4-16.0) gm/dL Hct (34.0-46.0) % MCV (80.0-100.0) fL MCH (25.0-35.0) pg MCHC (31.0-37.0) g/dL RDW (11.5-15.5) % Plt Count (150-450) k/uL Neutrophils % % Lymphocytes % % Monocytes % % Eosinophils % % Basophils % % Neutrophils # (1.3-7.7) k/uL Lymphocytes # (1.0-4.8) k/uL Monocytes # (0-1.0) k/uL Eosinophils # (0-0.7) k/uL Basophils # (0-0.2) k/uL Sodium (137-145) mmol/L Potassium (3.5-5.1) mmol/L Chloride (98-107) mmol/L Carbon Dioxide (22-30) mmol/L Anion Gap mmol/L BUN (7-17) mg/dL Creatinine (0.52-1.04) mg/dL Est GFR (CKD-EPI)AfAm (>60 ml/min/1.73 sqM) Est GFR (CKD-EPI)NonAf (>60 ml/min/1.73 sqM) Glucose (74-99) mg/dL Plasma Lactic Acid Donovan (0.7-2.0) mmol/L Calcium (8.4-10.2) mg/dL Total Bilirubin (0.2-1.3) mg/dL AST (14-36) U/L ALT (9-52) U/L Alkaline Phosphatase (38-126) U/L Total Protein (6.3-8.2) g/dL Albumin (3.5-5.0) g/dL Urine Color Yellow Urine Appearance Clear (Clear) Urine pH 7.0 (5.0-8.0) Ur Specific [place] 1.015 (1.001-1.035) Urine Protein Negative (Negative) Urine Glucose (UA) Negative (Negative) Urine Ketones Negative (Negative) Urine Blood Negative (Negative) Urine Nitrite Negative (Negative) Urine Bilirubin Negative (Negative) Urine Urobilinogen <2.0 (<2.0) mg/dL Ur Leukocyte Esterase Negative (Negative) Disposition Clinical Impression: Acute bronchitis Disposition: HOME SELF-CARE Condition: Stable Instructions: Acute Bronchitis (ED) Additional Instructions: Please return to the Emergency Department if symptoms worsen or any other concerns. Prescriptions: Azithromycin [Zithromax] 0 ml PO DIRECTED #38 ml Is patient prescribed a controlled substance at d/c from ED?: No Referrals: Navid Barajas DO [Primary Care Provider] - 1-2 days Time of Disposition: 19:24
[2018-01-18] MEDS ORDERED: ACETAMINOPHEN IV (For NPO) 1,000 MG in EMPTY BAG 1 BAG IVPB STA (18:37)
[2018-01-18 18:44] LABS: Basophils % (A) 0 %; Eosinophils % (A) 0 %; HCT 38.9 % (34.0-46.0); HGB 13.3 gm/dL (11.4-16.0); Lymphocytes # (A) 1.1 k/uL (1.0-4.8); Lymphocytes % (A) 13 %; MCH 31.3 pg (25.0-35.0); MCHC 34.2 g/dL (31.0-37.0); MCV 91.5 fL (80.0-100.0); Mean Platelet Volume 8.1; Monocytes # (A) 0.5 k/uL (0-1.0); Monocytes % (A) 6 %; Neutrophils # (A) 6.6 k/uL (1.3-7.7); Neutrophils % (A) 78 %; Platelet Count 156 k/uL (150-450); RBC 4.25 m/uL (3.80-5.40); RDW 12.9 % (11.5-15.5); WBC 8.5 k/uL (3.8-10.6)
--- NOTE | 2018-01-18 18:56 | XR ---
EXAMINATION TYPE: XR chest 2V DATE OF EXAM: 01/18/2018 COMPARISON: 08/10/2017 HISTORY: Fever and cough TECHNIQUE: Frontal and lateral views of the chest are obtained. FINDINGS: There is no heart failure nor confluent pneumonic infiltrate. Costophrenic angles are natalia r. There is spurring in the thoracic spine. There is 15% anterior wedging of mid thoracic vertebra. IMPRESSION: No active cardiopulmonary disease. No change.
[2018-01-18 19:02] LABS: Appearance,Urine Clear (Clear); Bilirubin,Urine Negative (Negative); Blood,Urine Negative (Negative); Color,Urine Yellow; Glucose,Urine (UA) Negative (Negative); Ketones,Urine Negative (Negative); Leukocyte Esterase,Urine Negative (Negative); Nitrite,Urine Negative (Negative); Protein,Urine Negative (Negative); Specific Gravity,Urine 1.015 (1.001-1.035); Urobilinogen,Urine <2.0 mg/dL (<2.0)
[2018-01-18 19:05] LABS: ALT 31 U/L (9-52); AST 24 U/L (14-36); Albumin 3.6 g/dL (3.5-5.0); Alkaline Phosphatase 78 U/L (38-126); Anion Gap 10 mmol/L; Blood Urea Nitrogen 20 mg/dL (7-17); Calcium 8.6 mg/dL (8.4-10.2); Carbon Dioxide 26 mmol/L (22-30); Chloride 98 mmol/L (98-107); Glucose 105 mg/dL (74-99); Sodium 134 mmol/L (137-145); Total Bilirubin 0.2 mg/dL (0.2-1.3); Total Protein 5.9 g/dL (6.3-8.2)
[2018-01-18 19:11] VITALS: BP 146/66; PULSE 62; RESP 16
[2018-01-18] MEDS ORDERED: cefTRIAXone IN SWFI 1,000 MG/10 ML SYRINGE IVP STA (19:39)
[2018-01-18] MEDS ORDERED: guaiFENesin SYRUP 100MG/5ML 200 MG/10 ML CUP PO STA (19:40)
== END 2018-01-18 20:11 | disposition home or self-care (01) ==
LOC: EC 17:52
DX: J20.9 Acute bronchitis, unspecified (principal); F03.90 Unspecified dementia, unspecified severity, without behavioral disturbance, psychotic disturbance, mood disturbance, and anxiety; Z90.49 Acquired absence of other specified parts of digestive tract; Z79.82 Long term (current) use of aspirin; Z79.899 Other long term (current) drug therapy; Z88.0 Allergy status to penicillin
CPT/HCPCS: 36415; 80053; 83605; 85025; 81003; 87040; 87086; 71046; 99284; 96365; 96375; 96361; J0696; J0131